=== PATIENT | male | born 1965 | race Two or more races ===

== ENCOUNTER 2018-02-16 12:55 | Inpatient (IN) | payer SELFPAY ==
[~2018-02-16] VITALS: Ht 170.2 cm; Wt 85.0 kg
--- NOTE | 2018-02-16 13:10 | PHYS DOC ---
Adult General Chief Complaint Chief Complaint: CHEST PAIN HPI HPI 52-year-old male presents with chest pain that started at 75 minutes prior to arrival. The patient was changing out a light fixtures when the pain began. He states it is a heavy pressure in his chest. Patient had some shortness of breath with the pain but denies diaphoresis. He also has a headache. At its worst it was 9 out of 10. He felt like his heart was "pounding". After aspirin by EMS, he states that it started to feel somewhat better. They also gave him a nitroglycerin. He did not feel an acute decrease in the pain with the nitroglycerin. At this time, the patient states the pain is a 5 out of 10. Patient has no cardiac history. He is never had a stress test or cardiac catheter. He has never had pain like this before. He denies fever or chills. Review of Systems Review of Systems Constitutional: Denies fever or chills [] Eyes: Denies change in visual acuity, redness, or eye pain [] HENT: Denies nasal congestion or sore throat [] Respiratory: Mild shortness of breath [] Cardiovascular: No additional information not addressed in HPI [] GI: Denies abdominal pain, nausea, vomiting, bloody stools or diarrhea [] : Denies dysuria or hematuria [] Musculoskeletal: Denies back pain or joint pain [] Integument: Denies rash or skin lesions [] Neurologic: Denies headache, focal weakness or sensory changes [] Endocrine: Denies polyuria or polydipsia [] All other systems were reviewed and found to be within normal limits, except as documented in this note. Allergies Allergies Allergies Coded Allergies Type Severity Reaction Last Updated Verified Sulfa (Sulfonamide Antibiotics) Allergy Unknown 02/16/18 Yes Physical Exam Physical Exam Constitutional: Well developed, well nourished, no acute distress, non-toxic appearance. [] HENT: Normocephalic, atraumatic, bilateral external ears normal, oropharynx moist, no oral exudates, nose normal. [] Eyes: PERRLA, EOMI, conjunctiva normal, no discharge. [] Neck: Normal range of motion, no tenderness, supple, no stridor. [] Cardiovascular:Heart rate regular rhythm, no murmur [] Lungs & Thorax: Bilateral breath sounds clear to auscultation [] Abdomen: Bowel sounds normal, soft, no tenderness, no masses, no pulsatile masses. [] Skin: Warm, dry, no erythema, no rash. [] Back: No tenderness, no CVA tenderness. [] Extremities: No tenderness, no cyanosis, no clubbing, ROM intact, no edema. [] Neurologic: Alert and oriented X 3, normal motor function, normal sensory function, no focal deficits noted. [] Psychologic: Affect normal, judgement normal, mood normal. [] EKG EKG Sinus rhythm, rate 86, normal axis, no ST elevations or depressions.[] Radiology/Procedures Radiology/Procedures [] Impressions: Portable chest, 02/16/2018: HISTORY: Chest pain The heart size and pulmonary vascularity are normal. No pulmonary infiltrate is seen. There is no evidence of pleural fluid. IMPRESSION: No acute cardiopulmonary abnormality is detected. Electronically signed by: Horacio Mtz MD (02/16/2018 1:16 PM) [facility] DICTATED AND SIGNED BY: HORACIO MTZ MD DATE: 02/16/18 8511 CC: HUDSON MEDINA DO; PCP,NO Course & Med Decision Making Course & Med Decision Making Pertinent Labs and Imaging studies reviewed. (See chart for details) The patient's EKG is unremarkable. His labs are unremarkable. His chest x-ray is unremarkable. After the second nitroglycerin, the patient stated feeling much better. Given the patient's story with chest pain with some exertion as well as improvement with nitroglycerin I believe it will be best to keep him for repeat troponins and chest pain rule out. Discussed the case with Dr. Faria and he has agreed to admit the patient for further management. [] Dragon Disclaimer Dragon Disclaimer This electronic medical record was generated, in whole or in part, using a voice recognition dictation system. HUDSON MEDINA DO Feb 16, 2018 13:10
[2018-02-16] MEDS ORDERED: NITROGLYCERIN SUBLINGUAL 0.4 MG BOTTLE OF 25. SL ONE (13:15)
[2018-02-16 13:18] LABS: BASO # 0.1 x10^3/uL (0.0-0.2); BASO % 1 % (0-3); EOS # 0.1 x10^3/uL (0.0-0.7); EOS % 1 % (0-3); HEMATOCRIT 45.9 % (39.0-53.0); HEMOGLOBIN 15.6 g/dL (13.0-17.5); LYMPH # 1.1 x10^3/uL (1.0-4.8); LYMPH % 18 % (24-48); MEAN CORPUSCULAR HEMOGLOBIN 31 pg (25-35); MEAN CORPUSCULAR HGB CONC 34 g/dL (31-37); MEAN CORPUSCULAR VOLUME 90 fL (79-100); MONO # 0.3 x10^3/uL (0.0-1.1); MONO % 5 % (0-9); NEUT # 4.5 x10^3uL (1.8-7.7); NEUT % 75 % (31-73); PLATELET COUNT 249 x10^3/uL (140-400); RED BLOOD COUNT 5.11 x10^6/uL (4.30-5.70); RED CELL DISTRIBUTION WIDTH 12.9 % (11.5-14.5)
--- NOTE | 2018-02-16 13:19 | RAD ---
Portable chest, 02/16/2018: HISTORY: Chest pain The heart size and pulmonary vascularity are normal. No pulmonary infiltrate is seen. There is no evidence of pleural fluid. IMPRESSION: No acute cardiopulmonary abnormality is detected. Electronically signed by: Horacio Mtz MD (02/16/2018 1:16 PM) [facility]
--- NOTE | 2018-02-16 13:20 | EKG ---
[address] [address] Test Date: 2018-02-16 Test Time: 12:55:42 Pat Name: CHOCO FELIZ Department: Room: Gender: M Equipment Operator Wage Hand: : 1965 Requested By: HUDSON MEDINA Order Number: [id number] Reading MD: Cecilio Corral MD Measurements Intervals Jbphh Rate: 86 P: 45 DE: 172 QRS: 40 QRSD: 90 T: 15 QT: 362 QTc: 436 Interpretive Statements SINUS RHYTHM Electronically Signed On 02-18-2018 12:20:37 CDT by Cecilio Corral MD
[2018-02-16 13:28] LABS: ALBUMIN/GLOBULIN RATIO 1.1 (1.0-1.7); CALCIUM 8.9 mg/dL (8.5-10.1); GFR 78.5; POTASSIUM 3.4 mmol/L (3.5-5.1); TOTAL BILIRUBIN 0.3 mg/dL (0.2-1.0); TOTAL PROTEIN 7.6 g/dL (6.4-8.2)
[2018-02-16] MEDS ORDERED: IV NORMAL SALINE 1,000ML 1,000 ML IV ONE (13:30)
[2018-02-16] MEDS ORDERED: TAMS0.4C2 PO (14:37)
[2018-02-16] MEDS ORDERED: MORPHINE SULFATE 2 MG/ML DISP.SYRIN. IV PRN (15:00)
[2018-02-16] MEDS ORDERED: ONDANSETRON PF 4 MG/2 ML VIAL. IV PRN (15:00)
[2018-02-16] MEDS ORDERED: NITROGLYCERIN SUBLINGUAL 0.4 MG BOTTLE OF 25. SL PRN (15:00)
[2018-02-16] MEDS ORDERED: NITROGLYCERIN OINT 1 GM PACKET. ONE (15:17)
[2018-02-16 16:20] VITALS: BP 153/93
[2018-02-16 16:33] LABS: BACTERIA,URINE 0 /HPF (0-FEW); BILIRUBIN,URINE NEG (NEG); CLARITY,URINE CLEAR; COLOR,URINE YELLOW; GLUCOSE,URINE NEG (NEG); HYALINE CASTS, URINE OCC /HPF; NITRITE,URINE NEG (NEG); RBC,URINE RARE /HPF (0-2); UROBILINOGEN,URINE 0.2 mg/dL (0.2 mg/dL); WBC,URINE RARE /HPF (0-4)
[2018-02-16 19:26] VITALS: BP 155/91
[2018-02-16] MEDS: ACETAMINOPHEN 325 MG TABLET PO PRN ×2 (22:01→22:32)
[2018-02-16 22:47] VITALS: BP 145/84
[2018-02-17] MEDS ORDERED: HEPARIN for IV BOLUS 10,000 UNIT/10 ML VIAL. IV ONE (02:30)
[2018-02-17] MEDS ORDERED: HEPARIN 25,000UTS/500ML PREMIX 500 ML IV PRN (02:30)
[2018-02-17 03:00] VITALS: BP 144/84
[2018-02-17 03:47] LABS: ALBUMIN 3.4 g/dL (3.4-5.0); CALCIUM 8.5 mg/dL (8.5-10.1); CREATININE 0.9 mg/dL (0.7-1.3); GFR 88.6; POTASSIUM 3.9 mmol/L (3.5-5.1); TOTAL BILIRUBIN 0.5 mg/dL (0.2-1.0); TOTAL PROTEIN 6.7 g/dL (6.4-8.2)
[2018-02-17 04:04] LABS: HEMATOCRIT 42.3 % (39.0-53.0); HEMOGLOBIN 14.5 g/dL (13.0-17.5); RED BLOOD COUNT 4.67 x10^6/uL (4.30-5.70); RED CELL DISTRIBUTION WIDTH 12.7 % (11.5-14.5); WHITE BLOOD COUNT 6.5 x10^3/uL (4.0-11.0)
[2018-02-17 05:46] VITALS: BP 154/89
[2018-02-17] MEDS: ACETAMINOPHEN 325 MG TABLET PO PRN (08:54)
--- NOTE | 2018-02-17 09:05 | PDOC2 ---
BRAYAN SKY POTLINE MONITOR 02/17/18 0905: CONSULT Date of Admission DATE: 02/17/18 TIME: 08:50 Reason for Consult: chest pain Problem List Problems Medical Problems: (1) Chest pain Status: Acute History of Present Illness Mr Chow is a 52 year old male who presents with complaints of chest pain. He reports onset of pain during light activity. He describes a pressure mid to left chest, non radiating, with associated racing of his heart, lightheadedness and dyspnea. He had coworkers call 911 and was transported to the ED. He reports pain lasted about 15 minutes and since then has had pressure off and on through the night. He reports improvement with nitrates. He reports some mild dyspnea with exertion recently and believes it could be asthma but has no official diagnosis of such. He reports remote episode of palpitations lasting about 5 seconds at a time without associated symptoms. He does report recent upper respiratory symptoms including ear congestion, headache and a mild non productive cough. He denies fever or chills. He does no regular exercise but reports being very active and up and down ladders all day at work. He denies congestive symptoms including orthopnea, PND or edema. He denies syncope. Cardiovascular: HTN, hyperipidemia Pulmonary: Other (possible asthma by patient report) GI: GERD Heme/Onc: No pertinent hx Psych: No pertinent hx Musculoskeletal: No pertinent hx Rheumatologic: No pertinent hx Infectious disease: No pertinent hx ENT: Other (recent URI) Renal/: Benign prostatic enlarg. Endocrine: No pertinent hx Dermatology: No pertinent hx Past Surgical History esophageal hernia repair, appendectomy Family History unremarkable Social History non smoker, rare ETOH, no illicit drugs Current Medications Current Medications Nitroglycerin (Nitrostat) 0.4 mg 1X ONCE SL Last administered on 02/16/18at 13: 17; Start 02/16/18 at 13:15; Stop 02/16/18 at 13:16; Status DC Sodium Chloride 1,000 ml @ 1,000 mls/hr 1X ONCE IV Last administered on at 13:26; Start 02/16/18 at 13:30; Stop 02/16/18 at 14:30; Status DC Ondansetron HCl (Zofran) 4 mg PRN Q4HRS PRN IV NAUSEA/VOMITING; Start 02/16/18 at 15:00; Stop 02/17/18 at 14:59 Morphine Sulfate (Morphine 2mg Syringe) 2 mg PRN Q2HR PRN IV PAIN Last administered on 02/16/18at 20:05; Start 02/16/18 at 15:00; Stop 02/17/18 at 14:59 Nitroglycerin (Nitrostat) 0.4 mg PRN Q5MIN PRN SL CHEST PAIN Last administered on 02/17/18at 02:45; Start 02/16/18 at 15:00; Stop 02/17/18 at 14:59 Nitroglycerin (Nitro-Bid Oint) 1 inch STK-MED ONCE .ROUTE ; Start 02/16/18 at 15 :17; Stop 02/16/18 at 15:18; Status DC Acetaminophen (Tylenol) 650 mg PRN Q6HRS PRN PO PAIN / TEMP Last administered on 02/16/18at 22:32; Start 02/16/18 at 21:30 Heparin Sodium/ Dextrose 500 ml @ 0 mls/hr CONT PRN IV SEE I/O RECORD Last administered on 02/17/18at 03:25; Start 02/17/18 at 02:30 Heparin Sodium (Porcine) (Heparin Sodium) 6,375 unit 1X ONCE IV Last administered on 02/17/18at 03:19; Start 02/17/18 at 02:30; Stop 02/17/18 at 02:31 ; Status DC Active Scripts Active Reported Tamsulosin Hcl 0.4 Mg Cap.er.24h 1 Cap PO DAILY Allergies: Coded Allergies: Sulfa (Sulfonamide Antibiotics) (Verified Allergy, Unknown, 02/16/18) Review of System as per HPI or negative General: Alert, Oriented X3, Cooperative, No acute distress HEENT: Atraumatic, EOMI, Mucous membr. moist/pink, Other (neck with normal ROM , no JVD/HJR, no carotid bruits) Lungs: Clear to auscultation, Normal air movement Heart: Regular rate, Normal S1, Normal S2, No murmurs, Other (no gallops, clicks or rubs) Abdomen: Normal bowel sounds, Soft, No tenderness Extremities: No cyanosis, No edema, Normal pulses Neuro: Normal speech, Strength at 5/5 X4 ext, Cranial nerves 3-12 NL Psych/Mental Status: Mental status NL, Mood NL VITALS Vital Signs Date Time Temp Pulse Resp B/P (MAP) Pulse Ox O2 Delivery O2 Flow Rate FiO2 02/17/18 08:34 Room Air 02/17/18 05:46 98.2 49 18 154/89 (110) 97 Labs Laboratory Tests Test 02/16/18 13:00 02/16/18 14:00 02/16/18 17:25 02/17/18 01:04 White Blood Count 6.0 x10^3/uL (4.0-11.0) Red Blood Count 5.11 x10^6/uL (4.30-5.70) Hemoglobin 15.6 g/dL (13.0-17.5) Hematocrit 45.9 % (39.0-53.0) Mean Corpuscular Volume 90 fL (79-100) Mean Corpuscular Hemoglobin 31 pg (25-35) Mean Corpuscular Hemoglobin Concent 34 g/dL (31-37) Red Cell Distribution Width 12.9 % (11.5-14.5) Platelet Count 249 x10^3/uL (140-400) Neutrophils (%) (Auto) 75 % (31-73) Lymphocytes (%) (Auto) 18 % (24-48) Monocytes (%) (Auto) 5 % (0-9) Eosinophils (%) (Auto) 1 % (0-3) Basophils (%) (Auto) 1 % (0-3) Neutrophils # (Auto) 4.5 x10^3uL (1.8-7.7) Lymphocytes # (Auto) 1.1 x10^3/uL (1.0-4.8) Monocytes # (Auto) 0.3 x10^3/uL (0.0-1.1) Eosinophils # (Auto) 0.1 x10^3/uL (0.0-0.7) Basophils # (Auto) 0.1 x10^3/uL (0.0-0.2) Sodium Level 138 mmol/L (136-145) Potassium Level 3.4 mmol/L (3.5-5.1) Chloride Level 105 mmol/L (98-107) Carbon Dioxide Level 25 mmol/L (21-32) Anion Gap 8 (6-14) Blood Urea Nitrogen 14 mg/dL (8-26) Creatinine 1.0 mg/dL (0.7-1.3) Estimated GFR (Cockcroft-Gault) 78.5 BUN/Creatinine Ratio 14 (6-20) Glucose Level 114 mg/dL (70-99) Calcium Level 8.9 mg/dL (8.5-10.1) Total Bilirubin 0.3 mg/dL (0.2-1.0) Aspartate Amino Transf (AST/SGOT) 21 U/L (15-37) Alanine Aminotransferase (ALT/SGPT) 36 U/L (16-63) Alkaline Phosphatase 93 U/L (46-116) Troponin I Quantitative < 0.017 ng/mL (0-0.055) 0.049 ng/mL (0-0.055) 0.057 ng/mL (0-0.055) Total Protein 7.6 g/dL (6.4-8.2) Albumin 4.0 g/dL (3.4-5.0) Albumin/Globulin Ratio 1.1 (1.0-1.7) Urine Collection Type Unknown Urine Color Yellow Urine Clarity Clear Urine pH 6.0 Urine Specific [place] 1.010 Urine Protein Neg (NEG-TRACE) Urine Glucose (UA) Neg mg/dL (NEG) Urine Ketones (Stick) Neg mg/dL (NEG) Urine Blood Small (NEG) Urine Nitrite Neg (NEG) Urine Bilirubin Neg (NEG) Urine Urobilinogen Dipstick 0.2 mg/dL (0.2 mg/dL) Urine Leukocyte Esterase Neg (NEG) Urine RBC Rare /HPF (0-2) Urine WBC Rare /HPF (0-4) Urine Squamous Epithelial Cells None /LPF Urine Bacteria 0 /HPF (0-FEW) Urine Hyaline Casts Occ /HPF Urine Mucus Marked /LPF Test 02/17/18 02:13 02/17/18 07:47 White Blood Count 6.5 x10^3/uL (4.0-11.0) Red Blood Count 4.67 x10^6/uL (4.30-5.70) Hemoglobin 14.5 g/dL (13.0-17.5) Hematocrit 42.3 % (39.0-53.0) Mean Corpuscular Volume 91 fL (79-100) Mean Corpuscular Hemoglobin 31 pg (25-35) Mean Corpuscular Hemoglobin Concent 34 g/dL (31-37) Red Cell Distribution Width 12.7 % (11.5-14.5) Platelet Count 235 x10^3/uL (140-400) Activated Partial Thromboplast Time 28 SEC (23-33) Sodium Level 140 mmol/L (136-145) Potassium Level 3.9 mmol/L (3.5-5.1) Chloride Level 107 mmol/L (98-107) Carbon Dioxide Level 23 mmol/L (21-32) Anion Gap 10 (6-14) Blood Urea Nitrogen 16 mg/dL (8-26) Creatinine 0.9 mg/dL (0.7-1.3) Estimated GFR (Cockcroft-Gault) 88.6 BUN/Creatinine Ratio 18 (6-20) Glucose Level 88 mg/dL (70-99) Calcium Level 8.5 mg/dL (8.5-10.1) Total Bilirubin 0.5 mg/dL (0.2-1.0) Aspartate Amino Transf (AST/SGOT) 21 U/L (15-37) Alanine Aminotransferase (ALT/SGPT) 34 U/L (16-63) Alkaline Phosphatase 82 U/L (46-116) Total Protein 6.7 g/dL (6.4-8.2) Albumin 3.4 g/dL (3.4-5.0) Albumin/Globulin Ratio 1.0 (1.0-1.7) Troponin I Quantitative 0.039 ng/mL (0-0.055) Images EKG - sinus rhythm with mild non specific st/t abn Assessment/Plan 1. Chest pain consistent with unstable angina and mild troponin elevation - continue heparin, aspirin, nitrates. no beta amos due to bradycardia. NPO. check lipids, add statin. Transfer to [facility] for cardiac cath. 2. Hypertension - continue nitrates. add ACEI post cardiac cath. no beta blockers secondary to bradycardia. 3. bradycardia - sinus. avoid av edwige blockers. consider outpatient event monitoring. 4. hyperlipidemia - check lipids. add statin. MADELEINE SHEETS MD 02/17/18 5542: CONSULT Assessment/Plan Patient seen and examined. Agree with DATA ANALYTICS DEVELOPER's assessment and plan. Chest pain with typical features concerning for unstable angina. Plan for cardiac catheterization and possible angioplasty. Risks and benefits were explained and he is agreeable. We will titrate oral antihypertensives for better blood pressure control. Thank you for your consultation. BRAYAN SKY APRN Feb 17, 2018 09:05 MADELEINE SHEETS MD Feb 17, 2018 13:38
--- NOTE | 2018-02-17 09:11 | CARD ---
MR#: [id number] Date of Study: 02/17/2018 Ordering Physician: KEENAN FRITZ, Referring Physician: KEENAN FRITZ, Tech: Dinorah Rucker APPROVED REPORT EXAM: Two-dimensional and M-mode echocardiogram with Doppler and color Doppler. Other Information Quality : GoodHR: 48bpm Rhythm : NSR INDICATION Chest Pain RISK FACTORS Hypertension 2D DIMENSIONS RVDd2.3 (2.9-3.5cm)Left Atrium(2D)3.8 (1.6-4.0cm) IVSd1.1 (0.7-1.1cm)Aortic Root(2D)3.1 (2.0-3.7cm) LVDd5.9 (3.9-5.9cm)LVOT Diameter2.2 (1.8-2.4cm) PWd1.2 (0.7-1.1cm)LVDs4.4 (2.5-4.0cm) FS (%) 25.8 %SV87.5 ml Aortic Valve AoV Peak [place].122.3cm/sAoV VTI29.8cm AO Peak GR.6.0mmHgLVOT Peak [place].118.5cm/s LVOT VTI 30.17cmAO Mean GR.4mmHg MARIANN (VMAX)3.64pd7QMM (VTI)3.99cm2 Mitral Valve MV E Pgcspjho10.6cm/sMV DECEL ACWN322ce MV A Yarwnopa57.6cm/sE/A Ratio1.0 Pulmonary Valve PV Peak Ohvizzdb764.9cm/sPV Peak Grad.4mmHg Tricuspid Valve TR P. Qifsjesf197sc/sRAP ASIICXSP0qbKn TR Peak Gr.61azVtHXVK89jqAf Pulmonary Vein S1 Zumafobw49.1cm/sD2 Kyorkgvq34.4cm/s LEFT VENTRICLE The Left Ventricle is borderline dilated. There is borderline concentric left ventricular hypertrophy . The left ventricular systolic function is normal. The Ejection Fraction is 55%. There is normal LV segmental wall motion. RIGHT VENTRICLE The right ventricle is normal size. There is normal right ventricular wall thickness. The right ventr icular systolic function is normal. ATRIA The left atrium size is normal. The right atrium size is normal. The interatrial septum is intact wit h no evidence for an atrial septal defect or patent foramen ovale as noted on 2-D or Doppler imaging. AORTIC VALVE The aortic valve is normal in structure and function. Doppler and Color Flow revealed no significant aortic regurgitation. There is no significant aortic valvular stenosis. MITRAL VALVE The mitral valve is normal in structure and function. There is no mitral valve stenosis. Doppler and Color Flow revealed trace mitral regurgitation. TRICUSPID VALVE The tricuspid valve is normal in structure and function. Doppler and Color Flow revealed trace tricus pid regurgitation. There is no tricuspid valve stenosis. PULMONIC VALVE The pulmonic valve is not well visualized. Doppler and Color Flow revealed trace pulmonic valvular re gurgitation. GREAT VESSELS The aortic root is normal in size. The IVC was not visualized. PERICARDIAL EFFUSION There is no evidence of significant pericardial effusion. Critical Notification Critical Value: No <Conclusion> The left ventricular systolic function is normal. The Ejection Fraction is 55%. There is normal LV segmental wall motion. Trace mitral regurgitation. Trace tricuspid regurgitation. There is no evidence of significant pericardial effusion. Signed by : Jin Oliveira, Electronically Approved : 02/17/2018 09:11:15
[2018-02-17] MEDS ORDERED: ATORVASTATIN CALCIUM 20 MG TABLET PO SCH (21:00)
[2018-02-18] MEDS ORDERED: ASPIRIN ENTERIC COATED 325 MG TABLET.DR. PO SCH (08:00)
== END 2018-02-17 10:09 | disposition short-term general hospital (02) | DRG 311 ==
LOC: ER 12:55 → 1 SOUTH 15:00 → ER 15:30
PROVIDERS: ADMIT Neuromusculoskeletal Medicine & OMM; ATTEND Neuromusculoskeletal Medicine & OMM
DX: I20.0 Unstable angina (principal); R00.1 Bradycardia, unspecified; E78.5 Hyperlipidemia, unspecified; I10 Essential (primary) hypertension; K21.9 Gastro-esophageal reflux disease without esophagitis; Z79.899 Other long term (current) drug therapy; Z88.2 Allergy status to sulfonamides
CPT/HCPCS: 36415; 71045; 80053; 80061; 81001; 84484; 85025; 85027; 85730; 93005; 93306; J1644; J2270; 99285-25; J7030